=== PATIENT | male | born 1970 | race African-American/Black ===

== ENCOUNTER 2018-01-15 00:45 | Emergency (ER) | payer SELFPAY ==
[~2018-01-15] VITALS: Ht 170.2 cm; Wt 98.0 kg
[~2018-01-15 00:45] MED LIST: AMOX500T PO; Z.0.NO CURRENT MEDS
[2018-01-15 01:17] VITALS: BP 147/96; PULSE 71; RESP 18; TEMP 98.5; O2SAT 99
[2018-01-15] MEDS ORDERED: MEDI220T PO (01:23)
--- NOTE | 2018-01-15 02:20 | PD ---
HPI Chief Complaint: Oral / Dental Pain or Problem Time Seen by Provider: 02:20 Travel History International Travel<30 days: No Contact w/Intl Traveler<30days: No Traveled to known affect area: No History of Present Illness HPI 47-year-old male presents emergency department for evaluation of left sided tooth pain. Patient states he has had cavities on the left lower teeth for an unknown amount of time. They have been painful for the last 2-3 days. Sometimes throbbing but a constant ache. Moderate in severity. He noticed some drainage from his last tooth on the left lower. He states that it tasted really bad. Denies any fever chills. Denies any injury. Is unable to get into a dentist. He has no other symptoms to report. PFSH Past Medical History Medical History: Denies Significant Hx Past Surgical History Surgical History: No Previous Surgery Social History Alcohol Use: No Tobacco Use: No Substance Use: No Allergies-Medications (Allergen,Severity, Reaction): Coded Allergies: No Known Allergies (Verified Adverse Reaction, Unknown, 01/15/18) Reported Meds & Prescriptions Reported Meds & Active Scripts Active Peridex Liq (Chlorhexidine Gluconate (Mouth) Liq) 0.12% Soln 15 Ml SWISH-SPIT BID Ibuprofen 800 Mg Tab 800 Mg PO Q8H PRN Penicillin V Potassium 500 Mg Tab 500 Mg PO Q8H 10 Days Reported Naproxen Sodium 220 Mg Tab 220 Mg PO BID PRN Review of Systems Except as stated in HPI: all other systems reviewed are Neg Physical Exam Narrative GENERAL: Well-nourished, well-developed male patient in no acute distress. SKIN: Focused skin assessment warm/dry. HEAD: Normocephalic. No edema EYES: No scleral icterus. No injection or drainage. DENTAL: No loose or chipped teeth patient has significantly decayed left mandibular first and second molars. Significant gingival erythema and edema. No appreciable abscess. No malocclusion. NECK: Supple, trachea midline. No JVD or lymphadenopathy. CARDIOVASCULAR: Regular rate and rhythm without murmurs, gallops, or rubs. RESPIRATORY: Breath sounds equal bilaterally. No accessory muscle use. MUSCULOSKELETAL: No cyanosis, or edema. BACK: Nontender without obvious deformity. No CVA tenderness. Data Data Last Documented VS Vital Signs Date Time Temp Pulse Resp B/P (MAP) Pulse Ox O2 Delivery O2 Flow Rate FiO2 4/15/18 01:17 98.5 71 18 147/96 (113) 99 Orders Orders Ed Discharge Order (01/15/18 02:22) Ibuprofen (Motrin) (01/15/18 02:45) MDM Medical Decision Making Medical Screen Exam Complete: Yes Emergency Medical Condition: Yes Medical Record Reviewed: Yes Differential Diagnosis Dental caries versus gingivitis versus pulpitis versus periodontal disease Narrative Course 47-year-old male presents emergency department for evaluation of dental pain. Patient has significantly decayed first and second molars on the left mandible. Significant gingival erythema and edema. Patient will be started on oral penicillin, provided pain control, encouraged follow-up with a dentist. Patient agrees to return immediately with acute worsening symptoms. Diagnosis Primary Impression: Dentalgia Additional Impression: Gingivitis Referrals: Dentist Primary Care Physician Patient Instructions: General Instructions, Gingivitis (ED) Additional Instructions: Follow-up with a dentist Return immediately with any acute worsening symptoms Med/Other Pt SpecificInfo: Prescription(s) given Scripts Chlorhexidine Gluconate (Mouth) Liq (Peridex Liq) 0.12% Soln 15 ML SWISH-SPIT BID, #473 ML 0 Refills Prov: Muna Spangler 01/15/18 Ibuprofen (Ibuprofen) 800 Mg Tab 800 MG PO Q8H Y for PAIN SCALE 1 TO 10, #30 TAB 0 Refills Prov: Muna Spangler 01/15/18 Penicillin V Potassium (Penicillin V Potassium) 500 Mg Tab 500 MG PO Q8H for Infection for 10 Days, #30 TAB 0 Refills Prov: Muna Spangler 01/15/18 Disposition: 01 DISCHARGE HOME Condition: Stable Muna Spangler Jan 15, 2018 02:20
[2018-01-15] MEDS ORDERED: IBUP1TAB7 PO (02:23)
[2018-01-15] MEDS ORDERED: PENI500T PO (02:23)
[2018-01-15] MEDS ORDERED: PERI0.126 SWISH-SPIT (02:23)
[2018-01-15] MEDS ORDERED: IBUPROFEN 800 MG TAB PO ONE (02:45)
== END 2018-01-15 02:48 | disposition home or self-care (01) ==
LOC: NEPD 00:45
DX: K08.89 Other specified disorders of teeth and supporting structures (principal); K05.10 Chronic gingivitis, plaque induced
CPT/HCPCS: 99283